=== PATIENT | female | born 1990 | race Caucasian/White ===

== ENCOUNTER 2022-07-02 11:04 | Emergency (ER) | payer SELFPAY ==
[2022-07-02 13:03] LABS: HCT 37.6 % (37.0-47.0); HGB 13.2 g/dl (12.5-16.0); LYMPHOCYTE 31.2 % (15-48); MCH 31.5 pg (25.0-31.0); MCHC 35.1 g/dL (32.0-36.0); MCV 89.7 fL (78.0-100.0); MONOCYTE 8.3 % (0-12); MPV 8.8 fL (6.0-9.5); NEUTROPHIL 54.2 % (41-80); NRBC 0; PLT 332 K/uL (150-400); RBC 4.19 M/uL (4.20-5.40); RDW 11.7 % (11.5-14.0); WBC 5.8 K/uL (4.0-10.5)
[2022-07-02 13:15] LABS: INR 1.02 (0.9-1.2); PROTHROMBIN TIME 13.1 SECONDS (11.9-13.9); PTT 27.7 SECONDS (24.9-34.6)
[2022-07-02 13:27] LABS: ALBUMIN 3.8 g/dL (3.4-5.0); BILIRUBIN - TOTAL 0.7 mg/dL (0.2-1.0); CREATININE 0.62 mg/dL (0.51-0.95); GLOBULIN (CALCULATION) 3.1 g/dL; MAGNESIUM 2.3 mg/dL (1.8-2.4); POTASSIUM 4.1 mmol/L (3.5-5.1); TOTAL PROTEIN 6.9 g/dL (6.4-8.2)
[2022-07-02] MEDS ORDERED: PROVERA10 MG PO (13:46)
[2022-07-02] MEDS ORDERED: NAPROXEN500 MG PO (13:46)
[2022-07-02 13:51] LABS: IRON % SATURATION 47.8 %SAT (20-50)
== END 2022-07-02 14:13 | disposition home or self-care (01) ==
LOC: FER 11:04
PROVIDERS: Emergency Medicine
DX: N92.1 Excessive and frequent menstruation with irregular cycle (principal); N83.02 Follicular cyst of left ovary; N83.01 Follicular cyst of right ovary
CPT/HCPCS: 36415; 76856; 80053; 83540; 83550; 83735; 84703; 85025; 85610; 85730; J1885; J2405; J7030